=== PATIENT | male | born 1955 | race Caucasian/White ===

== ENCOUNTER 2017-11-02 10:42 | Emergency (ER) | payer OTHER ==
[2017-11-02 11:25] LABS: URINE BLOOD (Dip) POC Trace-intact (NEGATIVE); URINE GLUCOSE (Dip) POC Negative (NEGATIVE); URINE KETONES (Dip) POC 1+ (NEGATIVE); URINE LEUKOCYTE EST (Dip) POC 2+ (NEGATIVE); URINE NITRITE (Dip) POC Positive (NEGATIVE); URINE TOTAL PROTEIN POC 2+ (NEGATIVE)
== END 2017-11-02 11:50 | disposition home or self-care (01) ==
LOC: E/R 10:42
DX: N30.00 Acute cystitis without hematuria (principal)
CPT/HCPCS: 81003; 87086; 99283

== ENCOUNTER 2018-05-07 06:59 | Day surgery (SDC) | payer OTHER ==
[2018-05-07] MEDS ORDERED: LIDOCAINE 2% (SDV) 5 ML INJ (08:31)
[2018-05-07] MEDS ORDERED: PROPOFOL 60 ML (08:31)
[2018-05-07] MEDS ORDERED: PROPOFOL 20 ML (08:58)
[2018-05-07] MEDS ORDERED: FENTAnyl 50 MCG/ML VIAL (08:59)
[2018-05-07] MEDS ORDERED: ONDANSETRON 4 MG INJ IV (09:30)
[2018-05-07] MEDS ORDERED: METOCLOPRAMIDE 10 MG INJ IV (09:30)
[2018-05-07] MEDS ORDERED: DIPHENHYDRAMINE 50 MG INJ IV (09:30)
[2018-05-07] MEDS ORDERED: FENTAnyl 50 MCG/ML VIAL IV (09:30)
== END 2018-05-07 12:02 | disposition home or self-care (01) ==
LOC: GIL 06:59
DX: Z12.11 Encounter for screening for malignant neoplasm of colon (principal); D12.4 Benign neoplasm of descending colon; K64.4 Residual hemorrhoidal skin tags; I10 Essential (primary) hypertension
CPT/HCPCS: 45385; 88305

== ENCOUNTER 2018-05-28 16:30 | Emergency (ER) | payer OTHER ==
[2018-05-28 20:01] LABS: ADD UMIC YES; UR ASCORBIC ACID NEGATIVE (NEGATIVE); UR BACTERIA FEW /HPF (NONE SEEN); UR BILIRUBIN (Dip) NEGATIVE (NEGATIVE); UR BLOOD (Dip) 1+ mg/dL (NEGATIVE); UR CLARITY CLOUDY (CLEAR); UR COLOR AMBER (YELLOW); UR GLUCOSE (Dip) NEGATIVE (NEGATIVE); UR KETONES (Dip) TRACE mg/dL (NEGATIVE); UR LEUKOCYTE ESTERASE (Dip) 2+ Leu/ul (NEGATIVE); UR MUCUS FEW /HPF (NONE SEEN); UR NITRITE (Dip) POSITIVE (NEGATIVE); UR NONSQUAMOUS EPITHELIAL CELL 1 /HPF (NONE SEEN); UR RBC 13 /HPF (0-5); UR SPECIFIC GRAVITY (Dip) 1.014 (1.003-1.030); UR SQUAMOUS EPITHELIAL CELL MANY /HPF (FEW); UR TOTAL PROTEIN (Dip) 1+ mg/dl (NEGATIVE); UR UROBILINOGEN (Dip) 1+ mg/dL (NEGATIVE); UR WBC > 182 /HPF (0-5)
[2018-05-28] MEDS: CEFTRIAXONE 1 GM INJ IM (20:30)
[2018-05-28] MEDS: LIDOCAINE 1% (MPF) 5 ML VIAL INJ (20:30)
== END 2018-05-28 20:49 | disposition home or self-care (01) ==
LOC: FTE 16:30
DX: T83.511D Infection and inflammatory reaction due to indwelling urethral catheter, subsequent encounter (principal); N39.0 Urinary tract infection, site not specified; Y73.2 Prosthetic and other implants, materials and accessory gastroenterology and urology devices associated with adverse incidents; Z85.848 Personal history of malignant neoplasm of other parts of nervous tissue
CPT/HCPCS: 81001; 87086; 96372; 99284-25

== ENCOUNTER 2018-08-25 14:20 | Emergency (ER) | payer OTHER ==
[2018-08-25 17:37] LABS: URINE BLOOD (Dip) POC Trace-intact (NEGATIVE); URINE GLUCOSE (Dip) POC Negative (NEGATIVE); URINE KETONES (Dip) POC 2+ (NEGATIVE); URINE LEUKOCYTE EST (Dip) POC 3+ (NEGATIVE); URINE NITRITE (Dip) POC Positive (NEGATIVE); URINE TOTAL PROTEIN POC 3+ (NEGATIVE)
[2018-08-25 17:37] LABS: URINE PH (Dip) POC 6.5 (5.0-8.5)
[2018-08-25] MEDS: LIDOCAINE 1% (MDV) 20 ML INJ SC (18:01)
[2018-08-25] MEDS: CEFTRIAXONE 1 GM INJ IM (18:01)
== END 2018-08-25 18:10 | disposition home or self-care (01) ==
LOC: FTE 14:20
DX: N39.0 Urinary tract infection, site not specified (principal); I10 Essential (primary) hypertension
CPT/HCPCS: 81003; 96372; 99284-25

== ENCOUNTER 2018-11-24 02:48 | Emergency (ER) | payer OTHER | END 2018-11-24 04:55 | disposition home or self-care (01) | LOC: FTE 02:48 | DX: N30.01 Acute cystitis with hematuria (principal); I10 Essential (primary) hypertension | CPT/HCPCS: 81001; 99283 ==